=== PATIENT | male | born 1965 | race Caucasian/White ===

== ENCOUNTER 2017-04-12 07:15 | Emergency (ER) | payer SELFPAY ==
[2017-04-12 07:58] LABS: Basophils % (Auto) 0.6 % (0.0-1.8); Eosinophils # (Auto) 0.1 K/mm3 (0.0-0.4); Hematocrit 39.5 % (35.5-45.6); Hemoglobin 13.2 gm/dl (11.8-15.2); Lymphocytes # (Auto) 1.4 K/mm3 (1.2-5.4); Lymphocytes % (Auto) 33.5 % (13.4-35.0); Mean Corpuscular HGB Conc 33 % (32-34); Mean Corpuscular Hemoglobin 31 pg (28-32); Mean Corpuscular Volume 93 fl (84-94); Monocytes # (Auto) 0.4 K/mm3 (0.0-0.8); Monocytes % (Auto) 10.3 % (0.0-7.3); Platelet Count 213 K/mm3 (140-440); Red Blood Count 4.24 M/mm3 (3.65-5.03); Red Cell Distribution Width 14.4 % (13.2-15.2)
[2017-04-12 08:20] LABS: Alanine Aminotransferase 31 units/L (7-56); BUN/Creatinine Ratio 8; Blood Urea Nitrogen 7 mg/dL (9-20); Calcium 9.1 mg/dL (8.4-10.2); Hemolysis Index 39
[2017-04-12 08:28] LABS: Bilirubin,Urine NEG (Negative); Blood,Urine SM (Negative); Color,Urine Yellow (Yellow); Mucus,Urine FEW /HPF; Nitrite,Urine NEG (Negative); Protein,Urine <15 mg/dL mg/dL (Negative); Urobilinogen,Urine < 2.0 mg/dL (<2.0); WBC,Urine < 1.0 /HPF (0.0-6.0)
[2017-04-12 08:50] LABS: Amphetamine Screen,Urine PRESUMPTIVE NEGATIVE; Benzodiazepines Screen,Urine PRESUMPTIVE NEGATIVE; Cannabinoid Screen,Urine PRESUMPTIVE NEGATIVE; Cocaine Screen,Urine PRESUMPTIVE NEGATIVE; Methadone Screen,Urine PRESUMPTIVE NEGATIVE; Opiate Screen,Urine PRESUMPTIVE NEGATIVE
[2017-04-12 09:02] VITALS: BP 121/62
--- NOTE | 2017-04-12 10:08 | XRay Report ---
ROUTINE CHEST, TWO VIEWS: HISTORY: Chest congestion. The trachea, heart, mediastinal contour, lung bazan and bony thorax are unremarkable. IMPRESSION: Unremarkable chest x-ray.
--- NOTE | 2017-04-12 10:49 | Emergency Department Report ---
HPI - General Chief Complaint: Abdominal Pain Time Seen by Provider: 04/12/17 08:33 - HPI HPI: This is a 52 year-old male presents to the emergency department from work with complaint of some generalized congestion. Through triage he complained of some fever and chills, nausea and vomiting. However when I saw the patient in the main emergency department he only mentions the congestion saying that he was having a cough. Patient has some occasional rambling speech but is redirectable. He denies any hallucinations or any homicidal or suicidal ideations. He denies any past medical history. He has a history of bipolar disorder but says he is compliant with medications. ED Past Medical Hx - Past Medical History Previous Medical History?: Yes Hx Psychiatric Treatment: Yes (BIPOLAR) - Surgical History Past Surgical History?: Yes Additional Surgical History: right hip surgery - Social History Smoking Status: Never Smoker Substance Use Type: None ED Review of Systems ROS: Stated complaint: COLD SX Other details as noted in HPI Comment: All other systems reviewed and negative Constitutional: denies: chills, fever Eyes: denies: eye pain, eye discharge, vision change ENT: congestion. denies: throat pain Respiratory: cough. denies: shortness of breath Cardiovascular: denies: chest pain, palpitations Gastrointestinal: denies: abdominal pain, diarrhea Genitourinary: denies: urgency, dysuria Musculoskeletal: denies: back pain, joint swelling, arthralgia Skin: denies: rash, lesions Neurological: denies: headache, weakness, paresthesias Psychiatric: denies: auditory hallucinations, visual hallucinations, homicidal thoughts, suicidal thoughts Physical Exam - Physical Exam Vital Signs: Vital Signs 04/12/17 04/12/17 04/12/17 07:41 09:02 09:03 Temperature 97.4 F L 97.6 F Pulse Rate 74 75 Respiratory 18 15 15 Rate Blood Pressure 119/76 Blood Pressure 121/62 [Right] O2 Sat by Pulse 100 100 100 Oximetry Physical Exam: GENERAL: The patient is well-developed well-nourished. HENT: Normocephalic. Atraumatic. Patient has moist mucous membranes. EYES: Extraocular motions are intact. Pupils equal reactive to light bilaterally. NECK: Supple. Trachea is midline. CHEST/LUNGS: Clear to auscultation. There is no respiratory distress noted. HEART/CARDIOVASCULAR: Regular. There is no tachycardia. There is no murmur. ABDOMEN: Abdomen is soft, nontender. Patient has normal bowel sounds. There is no abdominal distention. SKIN: Skin is warm and dry. NEURO: The patient is awake, alert, and oriented. The patient is cooperative. The patient has no focal neurologic deficits. The patient has normal speech. MUSCULOSKELETAL: There is no tenderness or deformity. There is no limitation range of motion. There is no evidence of acute injury. PSYCH: Patient occasionally will have wandering thoughts or make tangential statements. ED Course Vital Signs 04/12/17 04/12/17 04/12/17 07:41 09:02 09:03 Temperature 97.4 F L 97.6 F Pulse Rate 74 75 Respiratory 18 15 15 Rate Blood Pressure 119/76 Blood Pressure 121/62 [Right] O2 Sat by Pulse 100 100 100 Oximetry ED Medical Decision Making - Lab Data Result diagrams: 04/12/17 07:47 04/12/17 07:47 - Medical Decision Making Patient presents with what appears to be some complaint of an upper respiratory like symptoms or congestion. Labs are mostly unremarkable. Chest x-ray does not show any acute process. The patient has a history of bipolar disorder and because he started making some rambling statements and/or express some tangential thoughts, he was seen by the psych tool salvage worker. The patient does not have any suicidal or homicidal ideations, denies any hallucinations and therefore does not appear to be a 1013 candidate and the psych tool salvage worker agrees with this. Just after the patient had a chest x-ray done, he decided to elope from the emergency department without any discharge instructions and/or medications. - Differential Diagnosis bipolar disorder, schizophrenia, URI, pneumonia Critical Care Time: No Critical care attestation.: If time is entered above; I have spent that time in minutes in the direct care of this critically ill patient, excluding procedure time. ED Disposition Clinical Impression: History of bipolar disorder Upper respiratory infection Qualifiers: URI type: unspecified URI Qualified Code(s): J06.9 - Acute upper respiratory infection, unspecified Disposition: ELOPED Is pt being admited?: No Condition: Stable Referrals: PRIMARY CARE, [Primary Care Provider] - 3-5 Days Time of Disposition: 14:43
== END 2017-04-12 10:51 | disposition left against medical advice (07) ==
LOC: EDSEX → ED 07:15
DX: J06.9 Acute upper respiratory infection, unspecified (principal); F31.9 Bipolar disorder, unspecified
CPT/HCPCS: 36415; 71046; 80053; 80307; 81001; 85025; 99284; G0480; 80320